=== PATIENT | female | born 1970 | race Hispanic/Latino ===

== ENCOUNTER 2016-12-23 07:11 | Emergency (ER) | payer SELFPAY ==
[2016-12-23 07:24] VITALS: BP 139/88
== END 2016-12-23 08:31 ==
LOC: ED 07:11 → EEVIPCON 07:11 → ED 08:31
DX: R06.02 Shortness of breath (principal); M54.5 Low back pain; Z53.21 Procedure and treatment not carried out due to patient leaving prior to being seen by health care provider

== ENCOUNTER 2018-12-28 05:52 | Observation (INO) | payer MEDICAID ==
[2018-12-03 09:46] LABS: Basophils # (Auto) 0.1 K/mm3 (0.0-0.1); Eosinophils # (Auto) 0.1 K/mm3 (0.0-0.4); Eosinophils % (Auto) 0.8 % (0.0-4.3); Hematocrit 44.7 % (30.3-42.9); Hemoglobin 15.4 gm/dl (10.1-14.3); Lymphocytes % (Auto) 29.3 % (13.4-35.0); Mean Corpuscular HGB Conc 34 % (30-34); Mean Corpuscular Volume 95 fl (79-97); Monocytes % (Auto) 13.9 % (0.0-7.3); Platelet Count 178 K/mm3 (140-440)
[2018-12-03 10:12] LABS: Alanine Aminotransferase 33 units/L (7-56); Albumin 3.9 g/dL (3.9-5); BUN/Creatinine Ratio 17; Blood Urea Nitrogen 12 mg/dL (7-17); Calcium 8.5 mg/dL (8.4-10.2); Hemolysis Index 32
[~2018-12-28 05:52] MED LIST: MARCAINE-EPI 0.25%-1:200,000 INFILTRATI ONE; NACL 0.9% IR ONE; WATER FOR IRRIG STERILE IR ONE
[2018-12-28] MEDS ORDERED: LEVAQUIN 500MG/100ML 500 MG/100 ML BAG IV NR (06:00)
[2018-12-28] MEDS ORDERED: LACTATED RINGERS 1,000 ML IV SCH (06:00)
[2018-12-28] MEDS ORDERED: VERSED IV NR (07:00)
[2018-12-28] MEDS ORDERED: DIPRIVAN 10 MG/ML IV ONE (07:07)
[2018-12-28] MEDS ORDERED: SUBLIMAZE ONE (07:07)
[2018-12-28] MEDS ORDERED: XYLOCAINE MPF 2% ONE (07:07)
[2018-12-28] MEDS ORDERED: ROBINUL ONE (07:09)
[2018-12-28] MEDS ORDERED: PREMARIN VG ONE (07:18)
[2018-12-28] MEDS ORDERED: ANTIBIOTIC OINT TP ONE (07:19)
[2018-12-28] MEDS ORDERED: NACL 0.9% 0 ML ONE (07:19)
[2018-12-28] MEDS ORDERED: METHYLENE BLUE ONE (07:19)
[2018-12-28] MEDS ORDERED: MARCAINE-EPI 0.25%-1:200,000 INFILTRATI ONE (07:19)
[2018-12-28] MEDS ORDERED: NEOSPORIN GU IR ONE (07:20)
[2018-12-28] MEDS ORDERED: PROAIR IH ONE (07:23)
[2018-12-28] MEDS ORDERED: PROVENTIL IH NR (08:00)
--- NOTE | 2018-12-28 08:15 | Anesthesia Consultation ---
Anesthesia Consult and Med Hx Date of service: 12/28/18 - Airway Anesthetic Teeth Evaluation: Edentulous ROM Head & Neck: Adequate Mallampati Class: Class II Intubation Access Assessment: Good - Pulmonary Exam CTA: Yes - Cardiac Exam Cardiac Exam: RRR - Pre-Operative Health Status ASA Pre-Surgery Classification: ASA3 Proposed Anesthetic Plan: General - Pulmonary Hx Smoking: Yes (1 PPD X 20 YRS- STOPPED X 2 WEEKS) Hx Asthma: Yes (DAILY INHALER) COPD: Yes Hx Sleep Apnea: No (GAMA PRE SCREEN LOW RISK.) - Cardiovascular System Hx Hypertension: No Hx Heart Attack/AMI: No - Central Nervous System Hx Seizures: Yes Hx Psychiatric Problems: Yes (PANIC DISORDER) - Gastrointestinal Hx Gastroesophageal Reflux Disease: Yes (asymptomatic) - Endocrine Hx Renal Disease: No Hx Liver Disease: Yes (HEPATITIS C) - Hematic Hx Anemia: Yes (WITH PREG ONLY) - Other Systems Hx Cancer: Yes (colon polyps removed) Hx Obesity: Yes - Additional Comments Anesthesia Medical History Comments: Patient has GAMA , not yet fitted with mask , also hx of anxiety , depression and chronic pain
[2018-12-28] MEDS ORDERED: NARCAN 0.4 MG/1 ML IV PRN ×2 (08:16→11:30)
[2018-12-28] MEDS ORDERED: ZOFRAN IV PRN ×2 (08:16→11:30)
--- NOTE | 2018-12-28 08:16 | Anesthesia Day of Surgery ---
Anesthesia Day of Surgery - Day of Surgery Patient Examined: Yes Patient H&P Reviewed: Yes Patient is NPO: Yes
[2018-12-28] MEDS ORDERED: DILAUDID ONE (09:32)
[2018-12-28] MEDS: DILAUDID IV PRN ×3 (10:30→10:50)
--- NOTE | 2018-12-28 10:55 | Post Operative Note ---
Date of procedure: 12/28/18 Pre-op diagnosis: severe usi cystocele Post-op diagnosis: same Findings: as above Procedure: pv sling cystocele cysto Anesthesia: MORENITAA Surgeon: SANKET PATEL Cloth Shrinking Tester: TIBURCIO BURCH Estimated blood loss: 50-100ml Pathology: none Condition: stable Disposition: PACU
--- NOTE | 2018-12-28 11:15 | Operative Report ---
PREOPERATIVE DIAGNOSES: Severe urinary stress incontinence, cystocele. POSTOPERATIVE DIAGNOSES: Severe urinary stress incontinence, cystocele. PROCEDURE: Pubovaginal sling, cystocele repair. SURGEONS: Micah Bradley MD and Dr. Nicholas. ANESTHESIA: General. FINDINGS: This is a woman with severe stress incontinence to the point where she was miserable. She now presents for sling. All risks and implications discussed including bleeding, erosion recurrent incontinence, need for further surgery. DESCRIPTION OF PROCEDURE: The patient was brought to the operating room and placed on the operating table. Following induction of anesthesia, placed in lithotomy position, prepped and draped in the usual sterile fashion. Gentile catheter, [place] and weighted speculum were inserted. Midline incision was made. Excellent plane was developed but from the first incision, she was quite bloody. She had some oozing. We were in an excellent plane on both side, just the packing stopped all the bleeding, even the suprapubic tiny incisions after the area's ines was made with ooze, but she was off her aspirin for quite some time. At this point, the trocars were placed. Cystoscopy with the trocars in place, showed no bleeding, no perforation. These were passed through under manual guidance. Once this was done, the sling was placed in position. The sheath was cut and with a hemostat around this, it would not be too tight. This was placed in good position. We used a Vicryl mesh and sutured to hold up the bladder and some Manasa. The patient tolerated the procedure well. The vaginal epithelium was closed with interrupted 2-0 Vicryl. Estimated blood loss was 100 mL. She was brought to recovery in stable condition. JOB# [id number] DOMINGO/FISH
[2018-12-28] MEDS ORDERED: TYLENOL PO PRN (11:30)
[2018-12-28] MEDS: D5W/0.45% NACL/KCL 20 MEQ 20 MEQ/1,000 ML BAG IV SCH ×2 (12:00→19:40)
[2018-12-28] MEDS: NORCO 5/325 PO PRN ×2 (13:12→21:38)
--- NOTE | 2018-12-28 15:26 | Post Anesthesia Evaluation ---
- Post Anesthesia Evaluation Patient Participated: Yes Airway Patent: Yes Stable Respiratory Function: Yes Nausea/Vomiting: No Temp > 96.8F: Yes Pain Manageable: Yes Adequeate Hydration: Yes Anesthesia Complications: No
[2018-12-28] MEDS ORDERED: PROVENTIL IH PRN (15:43)
[2018-12-28] MEDS: MORPHINE IV PRN (17:09)
[2018-12-28] MEDS: XANAX PO SCH (21:39)
[2018-12-28] MEDS ORDERED: AMBIEN PO PRN (22:00)
[2018-12-28] MEDS ORDERED: DESYREL PO SCH (22:00)
[2018-12-29] MEDS: D5W/0.45% NACL/KCL 20 MEQ 20 MEQ/1,000 ML BAG IV SCH (02:57)
[2018-12-29] MEDS: MORPHINE IV PRN (05:50)
[2018-12-29] MEDS: XANAX PO SCH (09:55)
[2018-12-29] MEDS ORDERED: LEVAQUIN PO SCH (10:00)
[2018-12-29] MEDS ORDERED: EFFEXOR XR PO SCH (10:00)
[2018-12-29 11:29] VITALS: BP 125/68
[2018-12-29] MEDS: NORCO 5/325 PO PRN (11:53)
--- NOTE | 2018-12-29 12:19 | Progress Note ---
Assessment and Plan looks well packing " fell out " last night urine cleat home today tov in 2 d Subjective Date of service: 12/29/18 Principal diagnosis: usi Objective - Constitutional Vitals: Vital Signs - 12hr 12/29/18 12/29/18 12/29/18 05:50 06:20 07:30 Temperature 98.6 F Pulse Rate 83 Respiratory 18 16 18 Rate Blood Pressure 98/53 O2 Sat by Pulse 91 Oximetry 12/29/18 11:18 Temperature 98.2 F Pulse Rate 89 Respiratory 18 Rate Blood Pressure 125/68 O2 Sat by Pulse 93 Oximetry General appearance: Present: no acute distress - Neck Neck: supple - Respiratory Respiratory effort: normal Extremities: no ischemia - Gastrointestinal General gastrointestinal: Present: soft, non-tender - Labs CBC & Chem 7: 12/03/18 09:26 12/03/18 09:26 Medications & Allergies - Medications Allergies/Adverse Reactions: Allergies Penicillins Allergy (Verified 07/07/15 15:32) Shortness of Breath/HIVES tramadol HCl [From Ultram] Allergy (Verified 07/07/15 15:32) Shortness of Breath/HIVES Home Medications: Home Medications Medication Instructions Recorded Confirmed Last Taken Type ALPRAZolam [Xanax TAB] 0.5 mg PO BID 12/03/18 12/28/18 12/26/18 21:00 History Albuterol Sulfate [Proventil Hfa] 6.7 gm IH PRN PRN 12/03/18 12/28/18 12/27/18 21:00 History Fluticasone/Salmeterol [Advair 1 each IH DAILY 12/03/18 12/28/18 12/27/18 21:00 History 500-50 Diskus] HYDROcodone/ACETAMINOPHEN [[place] 1 each PO PRN PRN 12/03/18 12/03/18 Unknown History 5-325 Tablet] Ibuprofen [Motrin] 800 mg PO Q8HR PRN 12/03/18 12/28/18 12/21/18 History Ipratropium [place] [Atrovent Hfa] 12.9 gm IH BID 12/03/18 12/03/18 Unknown History Nitrofurantoin Monohyd/M-Cryst 100 mg PO BID 12/03/18 12/03/18 Unknown History [Macrobid 100 mg Capsule] Phentermine HCl [Adipex-P] 37.5 mg PO BID 12/03/18 12/03/18 12/03/18 History Trazodone HCl [traZODone] 150 mg PO QHS 12/03/18 12/28/18 12/26/18 21:00 History Venlafaxine HCl [Effexor Xr] 300 mg PO QAM 12/03/18 12/28/18 12/13/18 09:00 History Active Medications: Generic Name Dose Route Start Last Admin Trade Name Freq PRN Reason Stop Dose Admin Acetaminophen 650 mg 12/28/18 11:30 Tylenol PO Q4H PRN Pain MILD(1-3)/Fever >100.5/LIM Acetaminophen/Hydrocodone Bitart 2 each 12/28/18 11:30 12/29/18 11:53 Golden 5/325 PO 2 each Q6H PRN Administration Pain, Moderate (4-6) Albuterol 2.5 mg 12/28/18 15:43 12/28/18 22:34 Proventil IH 2.5 mg Q4HRT PRN Administration Shortness Of Breath Alprazolam 0.25 mg 12/28/18 22:00 12/29/18 09:55 Xanax PO 0.25 mg BID ELICEO Administration Potassium Chloride/Dextrose/Sod Cl 20 meq in 1,000 mls @ 125 mls/hr 12/28/18 11:30 12/29/18 02:57 D5w/0.45% Nacl/Kcl 20 Meq IV 125 mls/hr DIRECT ELICEO Administration Levofloxacin 250 mg 12/29/18 10:00 12/29/18 09:55 Levaquin PO 250 mg Q24HR ELICEO Administration Morphine Sulfate 2 mg 12/28/18 15:20 12/29/18 05:50 Morphine IV 2 mg Q6H PRN Administration Pain, Moderate (4-6) Naloxone HCl 0.1 mg 12/28/18 11:30 Narcan 0.4 Mg/1 Ml IV Q2MIN PRN Res Rate </= 8 or 02 SAT < 92% Ondansetron HCl 4 mg 12/28/18 11:30 Zofran IV Q8H PRN Nausea And Vomiting Trazodone HCl 150 mg 12/28/18 22:00 12/28/18 21:38 Desyrel PO 150 mg QHS ELICEO Administration Venlafaxine HCl 300 mg 12/29/18 10:00 12/29/18 09:55 Effexor Xr PO 300 mg QDAY ELICEO Administration Zolpidem Tartrate 5 mg 12/28/18 22:00 Ambien PO QHS PRN Sleep
--- NOTE | 2018-12-29 12:20 | Discharge Summary ---
Short Stay Discharge Plan Activity: other (no straining ) Weight Bearing Status: Full Weight Bearing Diet: low fat, low cholesterol, low salt Wound: open to air Special Instructions: other (teach rodriguez care ) Durable Medical Equipment Needed Upon Discharge: other (rodriguez ) Follow up with: FOZIA BRAVO MD [Primary Care Provider] - 7 Days SANKET PATEL MD [Staff Physician] - 12/31/18
== END 2018-12-29 19:30 | disposition home or self-care (01) ==
LOC: OR 05:52 → 3B-SURG 10:55
PROVIDERS: ADMIT Urology; ATTEND Urology
DX: N39.3 Stress incontinence (female) (male) (principal); N81.10 Cystocele, unspecified; F41.9 Anxiety disorder, unspecified; J44.9 Chronic obstructive pulmonary disease, unspecified; F32.9 Major depressive disorder, single episode, unspecified; F17.200 Nicotine dependence, unspecified, uncomplicated; Z85.038 Personal history of other malignant neoplasm of large intestine; Z90.49 Acquired absence of other specified parts of digestive tract; Z98.51 Tubal ligation status; Z98.890 Other specified postprocedural states; Z88.0 Allergy status to penicillin; Z88.8 Allergy status to other drugs, medicaments and biological substances; Z79.899 Other long term (current) drug therapy; Z87.442 Personal history of urinary calculi
CPT/HCPCS: 36415; 51992; 80053; 85025; 86850; 86900; 86901; 94660; 94760; 96374; 96375; 96376; A4217; C1771; C1781; G0378; J1170; J1956; J2250; J2270; J2704; J3010; J7120; Q9968

== ENCOUNTER 2020-07-05 18:00 | Emergency (ER) | payer MEDICAID ==
[2020-07-05 19:26] VITALS: BP 132/89
[2020-07-05] MEDS ORDERED: ASPIRIN 325 MG TAB PO ONE (20:19)
[2020-07-05 20:38] LABS: Basophils % (Auto) 0.5 % (0.0-1.8); Eosinophils % (Auto) 0.5 % (0.0-4.3); Hemoglobin 17.1 gm/dl (10.1-14.3); Lymphocytes # (Auto) 3.1 K/mm3 (1.2-5.4); Lymphocytes % (Auto) 42.6 % (13.4-35.0); Mean Corpuscular HGB Conc 34 % (30-34); Mean Corpuscular Volume 97 fl (79-97); Monocytes # (Auto) 0.8 K/mm3 (0.0-0.8); Monocytes % (Auto) 10.8 % (0.0-7.3); Platelet Count 167 K/mm3 (140-440); Red Blood Count 5.26 M/mm3 (3.65-5.03); Red Cell Distribution Width 12.6 % (13.2-15.2)
--- NOTE | 2020-07-05 20:42 | XRay Report ---
CHEST 2 VIEWS INDICATION / CLINICAL INFORMATION: MAIN. Chest pain. FINDINGS: SUPPORT DEVICES: None. HEART / MEDIASTINUM: No significant abnormality. LUNGS / PLEURA: No significant pulmonary or pleural abnormality. No pneumothorax. ADDITIONAL FINDINGS: No significant additional findings. IMPRESSION: 1. No acute findings. Signer Name: Ankur Ndiaye MD Signed: 07/05/2020 8:38 PM Workstation Name: [id number]
[2020-07-05 21:16] LABS: BUN/Creatinine Ratio 13; Blood Urea Nitrogen 10 mg/dL (7-17); Calcium 9.1 mg/dL (8.4-10.2); Hemolysis Index 14
[2020-07-05] MEDS ORDERED: ACETAMINOPHEN 325 MG TAB PO ONE (21:44)
[2020-07-05] MEDS ORDERED: ACETAMINOPHEN 325 MG TAB ONE (21:44)
--- NOTE | 2020-07-06 02:11 | Emergency Department Report ---
ED General Adult HPI - General Chief complaint: Extremity Problem,Nontraumatic Stated complaint: FOOT INJURY Source: patient Mode of arrival: Ambulatory Limitations: No Limitations - History of Present Illness Initial comments: Patient is a 49-year-old female with a history of CHF, GERD, migraine headaches, hepatitis C, asthma, COPD, bipolar disorder, PTSD, anxiety and depression, kidney stones and seizures as well as narcotic drug-seeking behavior who presents to the ED with complaint of acute exacerbation of her chronic low back pain that radiates to the lower extremities with diffuse upper and lower extremity tingling sensations and chest tightness for the last 1 week, worse in the last 2 days. Patient states that she had been taking Xanax, trazodone, Effe xor among other medications but ran out of these medications and is unable to follow-up with her primary care physician because they no longer take her Medicare Medicaid insurance. Patient denies dizziness, syncope, traumatic injury, abdominal pain, nausea, vomiting, fever, chills, dysuria, urinary frequency and urgency, heavy lifting, fall, headache, cough, bilateral upper and lower extremity weakness with numbness. MD Complaint: Low back pain; Bilateral foot pain; chest tightness; tingling sensations -: Gradual, year(s) (4) Location: chest (Tightness), back, lower extremity Radiation: non-radiation Severity scale (0 -10): 8 Quality: aching, sharp, constant Consistency: constant Improves with: none Worsens with: none Associated Symptoms: denies other symptoms, chest pain (Chest tightness). denies: confusion, cough, diaphoresis, fever/chills, headaches, loss of appetite, malaise, nausea/vomiting, rash, seizure, shortness of breath, syncope, weakness, other Treatments Prior to Arrival: none - Related Data Home Medications Medication Instructions Recorded Confirmed Last Taken ALPRAZolam [Xanax TAB] 0.5 mg PO BID 12/03/18 12/28/18 12/26/18 21:00 Albuterol Sulfate [Proventil Hfa] 6.7 gm IH PRN PRN 12/03/18 12/28/18 12/27/18 21:00 Fluticasone/Salmeterol [Advair 1 each IH DAILY 12/03/18 12/28/18 12/27/18 21:00 500-50 Diskus] HYDROcodone/ACETAMINOPHEN [[place] 1 each PO PRN PRN 12/03/18 12/03/18 Unknown 5-325 Tablet] Ibuprofen [Motrin] 800 mg PO Q8HR PRN 12/03/18 12/28/18 12/21/18 Ipratropium [place] [Atrovent Hfa] 12.9 gm IH BID 12/03/18 12/03/18 Unknown Nitrofurantoin Monohyd/M-Cryst 100 mg PO BID 12/03/18 12/03/18 Unknown [Macrobid 100 mg Capsule] Phentermine HCl [Adipex-P] 37.5 mg PO BID 12/03/18 12/03/18 12/03/18 Previous Rx's Medication Instructions Recorded Last Taken Type Ibuprofen [Motrin] 800 mg PO Q8HR PRN #30 tablet 07/06/20 Unknown Rx Trazodone HCl [traZODone] 150 mg PO QHS #30 07/06/20 Unknown Rx Venlafaxine HCl [Effexor Xr] 300 mg PO QAM #30 07/06/20 Unknown Rx hydrOXYzine PAMOATE [Vistaril] 25 mg PO Q6HR PRN #30 capsule 07/06/20 Unknown Rx predniSONE [Deltasone] 60 mg PO QDAY #15 tab 07/06/20 Unknown Rx Allergies Allergy/AdvReac Type Severity Reaction Status Date / Time Penicillins Allergy Shortness Verified 07/07/15 15:32 of Breath/HIVES tramadol HCl [From Ultram] Allergy Shortness Verified 07/07/15 15:32 of Breath/HIVES ED Review of Systems ROS: Stated complaint: FOOT INJURY Other details as noted in HPI Constitutional: denies: chills, fever Eyes: denies: eye pain, eye discharge, vision change ENT: denies: ear pain, throat pain Respiratory: denies: cough, shortness of breath, wheezing Cardiovascular: chest pain (Chest tightness). denies: palpitations Endocrine: no symptoms reported Gastrointestinal: denies: abdominal pain, nausea, vomiting, diarrhea Genitourinary: denies: urgency, dysuria, frequency, discharge, abnormal menses, dyspareunia Musculoskeletal: back pain (Low back pain), arthralgia (Bilateral foot pain), o ther (Diffuse upper and lower extremity tingling sensation). denies: joint swelling Skin: denies: rash, lesions Neurological: denies: headache, weakness, paresthesias Psychiatric: anxiety. denies: depression, auditory hallucinations, visual hallucinations, homicidal thoughts, suicidal thoughts Hematological/Lymphatic: denies: easy bleeding, easy bruising ED Past Medical Hx - Past Medical History Previous Medical History?: Yes Hx Hypertension: No Hx Heart Attack/AMI: No Hx Congestive Heart Failure: Yes Hx GERD: Yes Hx Liver Disease: Yes (HEPATITIS C) Hx Renal Disease: No Hx Headaches / Migraines: Yes (MIGRAINES) Hx Seizures: Yes Hx Kidney Stones: Yes Hx Psychiatric Treatment: Yes (ANXIETY, DEPRESSION, PTSD, BIPOLAR) Hx Asthma: Yes (DAILY INHALER) Hx COPD: Yes Hx HIV: No Additional medical history: Kidney stones - Surgical History Hx Cholecystectomy: Yes Additional Surgical History: COLON RESECTION. LITHOTRIPSY. TUBAL LIGATION - Social History Smoking Status: Current Every Day Smoker Substance Use Type: Alcohol - Medications Home Medications: Home Medications Medication Instructions Recorded Confirmed Last Taken Type ALPRAZolam [Xanax TAB] 0.5 mg PO BID 12/03/18 12/28/18 12/26/18 21:00 History Albuterol Sulfate [Proventil Hfa] 6.7 gm IH PRN PRN 12/03/18 12/28/18 12/27/18 21:00 History Fluticasone/Salmeterol [Advair 1 each IH DAILY 12/03/18 12/28/18 12/27/18 21:00 History 500-50 Diskus] HYDROcodone/ACETAMINOPHEN [[place] 1 each PO PRN PRN 12/03/18 12/03/18 Unknown History 5-325 Tablet] Ibuprofen [Motrin] 800 mg PO Q8HR PRN 12/03/18 12/28/18 12/21/18 History Ipratropium [place] [Atrovent Hfa] 12.9 gm IH BID 12/03/18 12/03/18 Unknown History Nitrofurantoin Monohyd/M-Cryst 100 mg PO BID 12/03/18 12/03/18 Unknown History [Macrobid 100 mg Capsule] Phentermine HCl [Adipex-P] 37.5 mg PO BID 12/03/18 12/03/18 12/03/18 History Ibuprofen [Motrin] 800 mg PO Q8HR PRN #30 tablet 07/06/20 Unknown Rx Trazodone HCl [traZODone] 150 mg PO QHS #30 07/06/20 Unknown Rx Venlafaxine HCl [Effexor Xr] 300 mg PO QAM #30 07/06/20 Unknown Rx hydrOXYzine PAMOATE [Vistaril] 25 mg PO Q6HR PRN #30 capsule 07/06/20 Unknown Rx predniSONE [Deltasone] 60 mg PO QDAY #15 tab 07/06/20 Unknown Rx ED Physical Exam - General Limitations: No Limitations General appearance: alert, in no apparent distress, anxious - Head Head exam: Present: atraumatic, normocephalic, normal inspection - Eye Eye exam: Present: normal appearance, PERRL, EOMI Pupils: Present: normal accommodation - ENT ENT exam: Present: normal exam, normal orophraynx, mucous membranes moist, TM's normal bilaterally, normal external ear exam - Neck Neck exam: Present: normal inspection, full ROM - Respiratory Respiratory exam: Present: normal lung sounds bilaterally. Absent: respiratory distress, wheezes, rales, stridor, chest wall tenderness, accessory muscle use, decreased breath sounds - Cardiovascular Cardiovascular Exam: Present: regular rate, normal rhythm, normal heart sounds. Absent: systolic murmur, diastolic murmur, rubs, gallop - GI/Abdominal GI/Abdominal exam: Present: soft, normal bowel sounds. Absent: tenderness, guarding, rebound, hyperactive bowel sounds, hypoactive bowel sounds, organomegaly - Extremities Exam Extremities exam: Present: normal inspection, full ROM, tenderness (Palpable mild bilateral foot tenderness), normal capillary refill. Absent: pedal edema, joint swelling, calf tenderness - Back Exam Back exam: Present: normal inspection, full ROM, tenderness (Palpable lumbosacr al paraspinal musculoskeletal tenderness), muscle spasm, paraspinal tenderness. Absent: CVA tenderness (L) - Neurological Exam Neurological exam: Present: alert, oriented X3, CN II-XII intact, normal gait, reflexes normal - Psychiatric Psychiatric exam: Present: normal affect, normal mood - Skin Skin exam: Present: warm, dry, intact, normal color. Absent: rash ED Course Vital Signs 07/05/20 07/05/20 19:23 21:47 Temperature 97.8 F Pulse Rate 96 H Respiratory 17 18 Rate Blood Pressure 132/89 O2 Sat by Pulse 96 Oximetry ED Medical Decision Making - Lab Data Result diagrams: 07/05/20 20:22 07/05/20 20:22 - EKG Data EKG shows normal: sinus rhythm Rate: normal - EKG Data Interpretation: normal EKG 07/06/20 02:15 EKG shows normal sinus rhythm with a ventricular rate of [address] or T wave abnormalities or pathological Q waves. - Radiology Data Radiology results: report reviewed, image reviewed Findings [address] [address] XRay Report Signed Patient: CAMILLA KASPER MR#: [id number] : 1970 Acct:[id number] Age/Sex: 49 / F ADM Date: 07/05/20 Loc: ED Attending Dr: Ordering Physician: ED MD NIKO Date of Service: 07/05/20 Procedure(s): XR chest routine 2V Accession Number(s): [id number] cc: ED MD NIKO Fluoro Time In Minutes: CHEST 2 VIEWS INDICATION / CLINICAL INFORMATION: MAIN. Chest pain. FINDINGS: SUPPORT DEVICES: None. HEART / MEDIASTINUM: No significant abnormality. LUNGS / PLEURA: No significant pulmonary or pleural abnormality. No pneumo thorax. ADDITIONAL FINDINGS: No significant additional findings. IMPRESSION: 1. No acute findings. Signer Name: Ankur Ndiaye MD Signed: 07/05/2020 8:38 PM Workstation Name: [id number] Transcribed By: Dictated By: Ankur Ndiaye MD Electronically Authenticated By: Ankur Ndiaye MD Signed Date/Time: 07/05/202037 DD/ 36 TD/TT: - Medical Decision Making This is a 49-year-old female with a history of CHF, GERD, migraine headaches, hepatitis C, asthma, COPD, bipolar disorder, PTSD, anxiety and depression, kidney stones and seizures as well as narcotic drug-seeking behavior who presents to the ED with complaint of acute exacerbation of her chronic low back pain that radiates to the lower extremities with diffuse upper and lower extremity tingling sensations and chest tightness for the last 1 week, worse in the last 2 days. Patient states that she had been taking Xanax, trazodone, Effexor among other medications but ran out of these medications and is unable to follow-up with her primary care physician because they no longer take her Medicare Medicaid insurance. In the ED, patient is alert and oriented x3 and is not in distress but anxious and appears to be in pain. Lab test results were reviewed and are all nonactionable. EKG shows normal sinus rhythm with a ventricular rate of [address] or T wave abnormalities. Chest x-ray shows no acute cardiopulmonary abnormalities or pneumonitis. Patient was treated for pain in the ED and discharged home on pain medications and advised to follow-up with her primary care physician in 5 to 7 days for reevaluation. Patient was advised return to the ED immediately if symptoms get worse. - Differential Diagnosis Anxiety; ACS; Chronic back pain; Muscle strain; Muscle spasm Critical care attestation.: If time is entered above; I have spent that time in minutes in the direct care of this critically ill patient, excluding procedure time. ED Disposition Clinical Impression: Spasm of muscle of lower back, Anxiety as acute reaction to exceptional stress Chronic low back pain with bilateral sciatica Qualifiers: Back pain laterality: bilateral Qualified Code(s): M54.42 - Lumbago with sciatica, left side; M54.41 - Lumbago with sciatica, right side; G89.29 - Other chronic pain Disposition: DC- TO HOME OR SELFCARE Is pt being admited?: No Does the pt Need Aspirin: No Condition: Stable Instructions: Generalized Anxiety Disorder, Adult, Chronic Back Pain, [id number], Sciatica, [id number] Additional Instructions: All lab test results are unremarkable, and chest x-ray shows no acute cardiopulmonary abnormalities. Therefore take medications with food, drink plenty of fluids and follow-up with your primary care physician in 5 to 7 days for reevaluation. Return to the ED immediately if symptoms get worse. Prescriptions: Trazodone HCl [traZODone] 150 mg PO QHS #30 predniSONE [Deltasone] 60 mg PO QDAY #15 tab Venlafaxine HCl [Effexor Xr] 300 mg PO QAM #30 Ibuprofen [Motrin] 800 mg PO Q8HR PRN #30 tablet PRN Reason: Pain , Severe (7-10) hydrOXYzine PAMOATE [Vistaril] 25 mg PO Q6HR PRN #30 capsule PRN Reason: Anxiety Referrals: [facility] [Outside] - 3-5 Days [facility] [Provider Group] - 3-5 Days FOZIA BRAVO MD [Staff Physician] - 3-5 Days Time of Disposition: 02:20 Print Language: AMERICAN
[2020-07-06] MEDS ORDERED: KETOROLAC 30 MG/1 ML INJ IM ONE (02:23)
[2020-07-06] MEDS ORDERED: HYDROcodone/ACETAMINOPHEN 7.5-325MG TAB PO ONE (02:23)
[2020-07-06] MEDS ORDERED: dexAMETHasone 20 MG/5 ML VIAL IM ONE (02:23)
[2020-07-06] MEDS ORDERED: ONDANSETRON 4 MG ODT TAB PO ONE (02:24)
== END 2020-07-06 02:55 | disposition home or self-care (01) ==
LOC: ED 18:00
DX: M54.42 Lumbago with sciatica, left side (principal); M54.41 Lumbago with sciatica, right side; M62.830 Muscle spasm of back; F41.1 Generalized anxiety disorder; F43.0 Acute stress reaction; I50.9 Heart failure, unspecified; K21.9 Gastro-esophageal reflux disease without esophagitis; G43.909 Migraine, unspecified, not intractable, without status migrainosus; R56.9 Unspecified convulsions; F41.9 Anxiety disorder, unspecified; J44.9 Chronic obstructive pulmonary disease, unspecified; F17.200 Nicotine dependence, unspecified, uncomplicated; Z98.51 Tubal ligation status; Z98.890 Other specified postprocedural states; Z79.1 Long term (current) use of non-steroidal anti-inflammatories (NSAID); Z79.899 Other long term (current) drug therapy; Z88.0 Allergy status to penicillin; Z88.8 Allergy status to other drugs, medicaments and biological substances
CPT/HCPCS: 36415; 71046; 80048; 84484; 85025; 93005; 96372; 99284; J1100; J1885; Q0162